=== PATIENT | male | born 1955 | race Caucasian/White ===

== ENCOUNTER 2020-12-23 12:23 | Observation (INO) ==
[2020-12-23] MEDS ORDERED: ASPIRIN CHEW 324 MG PO STA (12:52)
[2020-12-23] MEDS ORDERED: SODIUM CHLORIDE 0.9% 500 ML IV ONE (12:52)
--- NOTE | 2020-12-23 13:00 | Emergency Department Note ---
Impression & Plan Bradycardia, Near syncope, Abnormal ECG ED Provider Note NAME: YUNI SANTOS AGE: 65 SEX: M ARRIVES VIA: Walk-In INFORMANT: Patient, ED PROVIDER(S): Dimitry Zhang MD CHIEF COMPLAINT: Dizziness, abnormal EKG, referred. PLAN: Disposition: Admit. MEDICAL DECISION MAKING: The patient is a pleasant 65-year-old gentleman who presents to the emergency department, accompanied by his referred from his PCPs office for bradycardia and EKG concerning for ischemia in the setting of having appointment today to evaluate intermittent dizziness over the past 4 days or so. Despite his dizziness during this time he reports he has been exercising as usual and swim laps in the pool yesterday without difficulty. He denies ever having any chest pain or shortness of breath. When he feels dizzy he may feel some nausea but denies vomiting. He reports he is on Flomax for his prostate but denies any other medications. On arrival the patient is fatigued appearing in no distress, afebrile with heart rate bradycardic ranging from upper 30s to low 40s. His blood pressure is 160/80. He does not feel dizzy at this moment. Initial EKG on arrival shows bradycardia 39 bpm without any overt evidence of high-grade block. There is ST segment abnormalities in the precordial leads that is suspicious for possible Wellens syndrome. However, the patient has no chest pain and there is no overt concave down ST elevation. Of note, review of the patient's EKG from December 17, 2008 shows overall similar morphology however the biphasic nature of V1 does appear new. He did have sinus bradycardia at that time to 51bpm. Chest x-ray without acute cardiopulmonary process. WBC and platelets within normal limits. H/H 13.8/41.3 without recent values for comparison. Chemistry without metabolic acidosis. Electrolytes and LFTs unremarkable. Troponin negative/undetectable. TSH within normal limits. COVID-19 PCR was negative. I did review the case with interventional cardiology on-call, Dr. Leslie, who was able to review the patient's EKGs and agrees in concern for abnormal EKG though given similar morphology in the past and no chest pain no indication for emergent catheterization at this time. Agrees with plan for admission for further rule out including echo. Agrees with aspirin and deferring heparin at this time. Patient and at bedside agree with admission plan. Case was discussed with Savanna Marcos PAC, with Dr. Nile Corrales hospitalist who will evaluate the patient for admission. Triage Nursing notes reviewed and agree them. Prior medical records reviewed. Vital Signs: reviewed and remarkable for bradycardia. Differential diagnosis: Infection, dehydration, metabolic abnormality, hypo/hyperglycemia, electrolyte disturbance, anemia, hypoxia, cardiac sources, intracerebral event, toxicologic, neurologic, as well as other pathologies. ER treatment provided: See below. Diagnostics interpreted by me: ECG: Sinus bradycardia, 39 bpm, no ectopy, no overt high-grade block. ST abnormalities anteriorly. Cardiac Monitoring: An order for continuous cardiac monitoring was placed and demonstrated sinus bradycardia, 39 bpm, no ectopy. Laboratory studies: See below Imaging studies: See below Consultation(s): Case was discussed with Savanna Marcos, with Dr. Nile Corrales hospitalist who will evaluate the patient for admission. HPI: The patient is a pleasant 65-year-old gentleman who presents to the emergency department, accompanied by his referred from his PCPs office for bradycardia and EKG concerning for ischemia in the setting of having appointment today to evaluate intermittent dizziness over the past 4 days or so. Despite his dizziness during this time he reports he has been exercising as usual and swim laps in the pool yesterday without difficulty. He denies ever having any chest pain or shortness of breath. When he feels dizzy he may feel some nausea but denies vomiting. He reports he is on Flomax for his prostate but denies any other medications. ROS: See above HPI for pertinent positives & negatives. A total of 10 systems reviewed and were otherwise negative. PAST MEDICAL HISTORY:See Below PAST SURGICAL HISTORY:See Below FAMILY HISTORY:See Below SOCIAL HISTORY:See Below HOME MEDICATIONS:See Below ALLERGIES:See Below VITALS:See Below PHYSICAL EXAMINATION: GENERAL: Awake, alert, fatigued-appearing, in no distress HENT: Normocephalic, atraumatic. Oropharynx with dry mucous membranes and otherwise unremarkable. EYES: Normal conjunctiva. Sclera non-icteric. NECK: Supple. No nuchal rigidity. FROM. No JVD. RESPIRATORY: Clear to auscultation. CARDIAC: Bradycardic rate, normal rhythm. Extremities warm and well perfused. Pulses equal. ABDOMEN: Soft, non-distended. No tenderness to palpation. No rebound or guarding. No masses. RECTAL: Deferred. MUSCULOSKELETAL: Chest examination reveals no tenderness. The back is symmetrical on inspection without obvious abnormality. There is no CVA tenderness to palpation. No joint edema. LOWER EXTREMITIES: Calves are equal size bilaterally and non-tender. No edema. No discoloration. NEURO: Normal sensorium. No sensory or motor deficits noted. SKIN: No rash or jaundice noted. Dimitry Zhang MD Past Med/Surg History Medical History Acquired left foot drop BPH (benign prostatic hyperplasia) Dyslipidemia Surgical History H/O Spinal surgery Family History Other Heart disease Stroke Social History Smoking Status: Never smoker Second Hand Exposure: No; Do You Dip or Chew Tobacco: No; Tobacco Cessation Education Requested by Patient: No Hx Alcohol Use: Yes Alcohol type: wine Alcohol Intake Frequency: 2-4 x/Month Hx Substance Use: No Preferred Language: Cambodian Communication Ability: Effective Health Educator Required: No Beliefs That Will Affect Care: None Current Living Situation: Spouse Other Information That Helps Us Care for You: No Feels Safe at Home: Yes Safety Concerns: Feels Safe At This Time Assistive Devices: Glasses Allergies Allergies Allergy/AdvReac Type Severity Reaction Status Date / Time Sulfa (Sulfonamide Allergy Unknown Verified 12/23/20 14:09 Antibiotics) Home Meds Home Medications Medication Instructions Recorded Confirmed [id number] 1 cap PO QAM 12/23/20 12/23/20 [Krill Oil ([place] 3 and 6)] tamsulosin [Flomax] 0.4 mg PO QAM 12/23/20 12/23/20 [id number] 1 cap PO QAM 12/23/20 12/23/20 [Candicidal] Results & Data (ED) Vital Signs Vital Signs - 24 hr 12/23/20 12:27 12/23/20 12:42 12/23/20 12:45 Temperature 35.9 C L Temperature Source Temporal Artery Scan Pulse Rate 42 L 40 L Pulse Rate from SpO2 Sensor 41 L Respiratory Rate 20 13 Respiratory Effort / Characteristics Non-Labored Spontaneous Respiratory Depth Normal Respiratory Pattern Regular Blood Pressure 162/87 H 182/87 H Blood Pressure Mean 112 118 Pulse Oximetry 99 100 100 Oxygen Delivery Method Room Air Room Air Room Air Sepsis Recent Fever Within 48 Hours No Sepsis New/Unexplained Change in Mental Status No Sepsis Action Taken by Nursing No Action Required 12/23/20 12:50 12/23/20 13:00 12/23/20 13:01 Temperature Temperature Source Pulse Rate 37 L 36 L 37 L Pulse Rate from SpO2 Sensor 37 L 36 L 37 L Respiratory Rate 16 13 17 Respiratory Effort / Characteristics Respiratory Depth Respiratory Pattern Blood Pressure 148/82 H Blood Pressure Mean 104 Pulse Oximetry 100 100 99 Oxygen Delivery Method Room Air Room Air Room Air Sepsis Recent Fever Within 48 Hours Sepsis New/Unexplained Change in Mental Status Sepsis Action Taken by Nursing 12/23/20 13:15 12/23/20 13:30 12/23/20 13:32 Temperature Temperature Source Pulse Rate 39 L 40 L 37 L Pulse Rate from SpO2 Sensor 41 L 39 L 37 L Respiratory Rate 15 13 16 Respiratory Effort / Characteristics Respiratory Depth Respiratory Pattern Blood Pressure 150/80 H 164/84 H Blood Pressure Mean 103 110 Pulse Oximetry 100 99 99 Oxygen Delivery Method Room Air Room Air Room Air Sepsis Recent Fever Within 48 Hours Sepsis New/Unexplained Change in Mental Status Sepsis Action Taken by Nursing 12/23/20 13:33 12/23/20 13:45 12/23/20 14:00 Temperature Temperature Source Pulse Rate 38 L 38 L 38 L Pulse Rate from SpO2 Sensor 38 L 38 L 37 L Respiratory Rate 13 16 15 Respiratory Effort / Characteristics Respiratory Depth Respiratory Pattern Blood Pressure 145/82 H Blood Pressure Mean 103 Pulse Oximetry 99 100 100 Oxygen Delivery Method Room Air Room Air Room Air Sepsis Recent Fever Within 48 Hours Sepsis New/Unexplained Change in Mental Status Sepsis Action Taken by Nursing 12/23/20 14:01 12/23/20 14:02 12/23/20 14:15 Temperature Temperature Source Pulse Rate 40 L 37 L 39 L Pulse Rate from SpO2 Sensor 40 L 38 L 39 L Respiratory Rate 13 14 13 Respiratory Effort / Characteristics Respiratory Depth Respiratory Pattern Blood Pressure 155/93 H 156/83 H Blood Pressure Mean 113 107 Pulse Oximetry 100 100 98 Oxygen Delivery Method Room Air Room Air Room Air Sepsis Recent Fever Within 48 Hours Sepsis New/Unexplained Change in Mental Status Sepsis Action Taken by Nursing 12/23/20 14:30 Temperature Temperature Source Pulse Rate 38 L Pulse Rate from SpO2 Sensor 38 L Respiratory Rate 14 Respiratory Effort / Characteristics Respiratory Depth Respiratory Pattern Blood Pressure 174/85 H Blood Pressure Mean 114 Pulse Oximetry 99 Oxygen Delivery Method Room Air Sepsis Recent Fever Within 48 Hours Sepsis New/Unexplained Change in Mental Status Sepsis Action Taken by Nursing Laboratory Data Attestation: I reviewed the patient's lab results. Result diagrams: 12/23/20 12:47 12/23/20 12:47 Lab Results 12/23/20 12/23/20 12/23/20 Range/Units 12:47 12:47 12:47 WBC 5.12 (4.8-10.8) K/uL RBC 4.32 L (4.7-6.1) M/uL Hgb 13.8 L (14.0-18.0) g/dL POC Hgb (14.0-18.0) g/dl Hct 41.3 L (42-52) % POC Hct (42-52) % MCV 95.6 (80-100) fL MCH 31.9 (25-34) pg MCHC 33.4 (32-36) g/dL RDW Std Deviation 47.6 H (36.4-46.3) fL RDW Coeff of Kaylee 13.6 (11.5-14.5) % Plt Count 320 (130-400) K/uL MPV 9.4 (7.4-10.4) fL Immature Gran % (Auto) 0.0 % Neut % (Auto) 55.1 % Lymph % (Auto) 37.1 % Emmons % (Auto) 6.6 % Eos % (Auto) 0.8 % Baso % (Auto) 0.4 % Neut # (Auto) 2.82 (1.4-6.5) K/uL Lymph # (Auto) 1.90 (1.2-3.4) K/uL Emmons # (Auto) 0.34 (0.11-0.59) K/uL Eos # (Auto) 0.04 (0-0.5) K/uL Baso # (Auto) 0.02 (0-0.2) K/uL Immature Gran # (Auto) 0.00 (0.00-0.02) K/uL PT 10.3 (9.0-12.0) Seconds INR 1.0 (0.9-1.1) APTT 25.1 (21.0-31.0) Seconds PTT Ratio 1.0 POC Sodium (135-144) mmol/L Sodium 134 L (136-145) mmol/L POC Potassium (3.3-5.0) mmol/L Potassium 4.3 (3.5-5.1) mmol/L POC Chloride (101-112) mmol/L Chloride 102 (98-107) mmol/L Carbon Dioxide 29 (21-32) mmol/L POC Total CO2 (24-31) mmol/L Anion Gap 3.0 (3-11) POC Anion Gap (16-25) mmol/L POC BUN (7-18) mg/dl BUN 15 (7-18) mg/dl Creatinine 0.86 (0.6-1.4) mg/dl POC Creatinine (0.6-1.3) mg/dl Est Cr Clr Drug Dosing Not Reportable Est GFR ( Amer) 104.0 ml/min Est GFR (Non-Af Amer) 89.7 ml/min BUN/Creatinine Ratio 17.9 (10-20) Glucose 90 (70-99) mg/dl POC Glucose (other) (70-99) mg/dl Calcium 8.5 (8.5-10.1) mg/dl POC Ioniz Calcium Carla (1.12-1.32) mmol/l Phosphorus 3.7 (2.5-4.9) mg/dl Magnesium 2.3 (1.8-2.4) mg/dl Total Bilirubin 0.5 (0.2-1) mg/dl Direct Bilirubin 0.1 (0-0.2) mg/dl AST 30 (15-37) U/L ALT 27 (12-78) U/L Alkaline Phosphatase 83 (45-117) U/L Total Creatine Kinase 167 (39-308) U/L Troponin I < 0.015 (0-0.045) ng/ml Total Protein 7.2 (6.4-8.2) gm/dl Albumin 3.9 (3.4-5.0) gm/dl Globulin 3.3 (2.5-4.0) gm/dl Albumin/Globulin Ratio 1.2 (0.9-2) Lipase 227 (73-393) U/L TSH 3.140 (0.300-4.500) uIu/ml Lyme Disease IgG Ab (Negative) Lyme Disease IgM Ab (Negative) COVID-19 Eval Order SARS-CoV-2 (PCR) (Negative) 12/23/20 12/23/20 12/23/20 Range/Units 12:47 12:54 13:15 WBC (4.8-10.8) K/uL RBC (4.7-6.1) M/uL Hgb (14.0-18.0) g/dL POC Hgb 13.6 L (14.0-18.0) g/dl Hct (42-52) % POC Hct 40 L (42-52) % MCV (80-100) fL MCH (25-34) pg MCHC (32-36) g/dL RDW Std Deviation (36.4-46.3) fL RDW Coeff of Kaylee (11.5-14.5) % Plt Count (130-400) K/uL MPV (7.4-10.4) fL Immature Gran % (Auto) % Neut % (Auto) % Lymph % (Auto) % Emmons % (Auto) % Eos % (Auto) % Baso % (Auto) % Neut # (Auto) (1.4-6.5) K/uL Lymph # (Auto) (1.2-3.4) K/uL Emmons # (Auto) (0.11-0.59) K/uL Eos # (Auto) (0-0.5) K/uL Baso # (Auto) (0-0.2) K/uL Immature Gran # (Auto) (0.00-0.02) K/uL PT (9.0-12.0) Seconds INR (0.9-1.1) APTT (21.0-31.0) Seconds PTT Ratio POC Sodium 136 (135-144) mmol/L Sodium (136-145) mmol/L POC Potassium 4.4 (3.3-5.0) mmol/L Potassium (3.5-5.1) mmol/L POC Chloride 98 L (101-112) mmol/L Chloride (98-107) mmol/L Carbon Dioxide (21-32) mmol/L POC Total CO2 27 (24-31) mmol/L Anion Gap (3-11) POC Anion Gap 17.0 (16-25) mmol/L POC BUN 17 (7-18) mg/dl BUN (7-18) mg/dl Creatinine (0.6-1.4) mg/dl POC Creatinine 1.0 (0.6-1.3) mg/dl Est Cr Clr Drug Dosing Est GFR ( Amer) ml/min Est GFR (Non-Af Amer) ml/min BUN/Creatinine Ratio (10-20) Glucose (70-99) mg/dl POC Glucose (other) 95 (70-99) mg/dl Calcium (8.5-10.1) mg/dl POC Ioniz Calcium Carla 1.20 (1.12-1.32) mmol/l Phosphorus (2.5-4.9) mg/dl Magnesium (1.8-2.4) mg/dl Total Bilirubin (0.2-1) mg/dl Direct Bilirubin (0-0.2) mg/dl AST (15-37) U/L ALT (12-78) U/L Alkaline Phosphatase (45-117) U/L Total Creatine Kinase (39-308) U/L Troponin I (0-0.045) ng/ml Total Protein (6.4-8.2) gm/dl Albumin (3.4-5.0) gm/dl Globulin (2.5-4.0) gm/dl Albumin/Globulin Ratio (0.9-2) Lipase (73-393) U/L TSH (0.300-4.500) uIu/ml Lyme Disease IgG Ab Negative (Negative) Lyme Disease IgM Ab Negative (Negative) COVID-19 Eval Order Covid19 at [facility] SARS-CoV-2 (PCR) (Negative) 12/23/20 Range/Units 13:15 WBC (4.8-10.8) K/uL RBC (4.7-6.1) M/uL Hgb (14.0-18.0) g/dL POC Hgb (14.0-18.0) g/dl Hct (42-52) % POC Hct (42-52) % MCV (80-100) fL MCH (25-34) pg MCHC (32-36) g/dL RDW Std Deviation (36.4-46.3) fL RDW Coeff of Kaylee (11.5-14.5) % Plt Count (130-400) K/uL MPV (7.4-10.4) fL Immature Gran % (Auto) % Neut % (Auto) % Lymph % (Auto) % Emmons % (Auto) % Eos % (Auto) % Baso % (Auto) % Neut # (Auto) (1.4-6.5) K/uL Lymph # (Auto) (1.2-3.4) K/uL Emmons # (Auto) (0.11-0.59) K/uL Eos # (Auto) (0-0.5) K/uL Baso # (Auto) (0-0.2) K/uL Immature Gran # (Auto) (0.00-0.02) K/uL PT (9.0-12.0) Seconds INR (0.9-1.1) APTT (21.0-31.0) Seconds PTT Ratio POC Sodium (135-144) mmol/L Sodium (136-145) mmol/L POC Potassium (3.3-5.0) mmol/L Potassium (3.5-5.1) mmol/L POC Chloride (101-112) mmol/L Chloride (98-107) mmol/L Carbon Dioxide (21-32) mmol/L POC Total CO2 (24-31) mmol/L Anion Gap (3-11) POC Anion Gap (16-25) mmol/L POC BUN (7-18) mg/dl BUN (7-18) mg/dl Creatinine (0.6-1.4) mg/dl POC Creatinine (0.6-1.3) mg/dl Est Cr Clr Drug Dosing Est GFR ( Amer) ml/min Est GFR (Non-Af Amer) ml/min BUN/Creatinine Ratio (10-20) Glucose (70-99) mg/dl POC Glucose (other) (70-99) mg/dl Calcium (8.5-10.1) mg/dl POC Ioniz Calcium Carla (1.12-1.32) mmol/l Phosphorus (2.5-4.9) mg/dl Magnesium (1.8-2.4) mg/dl Total Bilirubin (0.2-1) mg/dl Direct Bilirubin (0-0.2) mg/dl AST (15-37) U/L ALT (12-78) U/L Alkaline Phosphatase (45-117) U/L Total Creatine Kinase (39-308) U/L Troponin I (0-0.045) ng/ml Total Protein (6.4-8.2) gm/dl Albumin (3.4-5.0) gm/dl Globulin (2.5-4.0) gm/dl Albumin/Globulin Ratio (0.9-2) Lipase (73-393) U/L TSH (0.300-4.500) uIu/ml Lyme Disease IgG Ab (Negative) Lyme Disease IgM Ab (Negative) COVID-19 Eval Order SARS-CoV-2 (PCR) NEGATIVE (Negative) Administered Medications Heparin Sodium (Porcine) (Heparin Sod 5,000 Unit/0.5 Ml Vial) 5,000 units SQ Q8 WAQAR Stop: 01/22/21 21:59 Last Admin: 12/23/20 21:57 Dose: 5,000 units Documented by: [id number] Discontinued Medications Aspirin (Aspirin Chew 324 Mg) 324 mg PO NOW STA Stop: 12/23/20 12:53 Last Admin: 12/23/20 13:12 Dose: Not Given Documented by: [id number] Sodium Chloride (Nss) 500 mls @ 999 mls/hr IV .Q31M ONE Stop: 12/23/20 13:22 Last Infusion: 12/23/20 13:45 Dose: 0 mls/hr Documented by: [id number] Admin: 12/23/20 13:14 Dose: 999 mls/hr Documented by: [id number] Imaging Data Radiologist's Impression: Chest X-Ray 12/23/20 12:51 XR chest 1V portable CLINICAL HISTORY: Atypical chest pain COMPARISON STUDY: December 2008 FINDINGS: The heart is the upper limits of normal in size. There is no overt failure. There is no focal pulmonary consolidation. There are no pleural effusions. There is gaseous prominence of the visualized portions of the bowel.[ IMPRESSION: No active disease in the chest. ACT 112: Negative or not required by law. Electronically signed by: Diego Ozuna M.D. 12/23/2020 1:10 PM Discharge Plan Visit Data Chief Complaint: Cardiac Assessment Stated Complaint: DIZZINESS/REFERRED BY ABNORMAL EKG ED Provider: Dimitry Zhang Discharge Problem: Bradycardia, Near syncope, Abnormal ECG Patient Disposition: Admitted As Inpatient Discharge Instructions Interventions: ED Discharge Assessment Last Done: 12/23/20 15:02
[2020-12-23 13:01] LABS: Basophils # (auto) 0.02 K/uL (0-0.2); Basophils % (auto) 0.4 %; Eosinophils # (auto) 0.04 K/uL (0-0.5); Eosinophils % (auto) 0.8 %; Hematocrit (blood only) 41.3 % (42-52); Hemoglobin 13.8 g/dL (14.0-18.0); Lymphocytes % (auto) 37.1 %; Mean Corpuscular Hemoglobin 31.9 pg (25-34); Mean Corpuscular Hgb Conc 33.4 g/dL (32-36); Mean Corpuscular Volume 95.6 fL (80-100); Mean Platelet Volume 9.4 fL (7.4-10.4); Monocytes # (auto) 0.34 K/uL (0.11-0.59); Monocytes % (auto) 6.6 %; Neutrophils # (auto) 2.82 K/uL (1.4-6.5); Neutrophils % (auto) 55.1 %; Platelet Count 320 K/uL (130-400); RDW Coefficient of Variation 13.6 % (11.5-14.5); RDW Standard Deviation 47.6 fL (36.4-46.3); Red Blood Count 4.32 M/uL (4.7-6.1); White Blood Count 5.12 K/uL (4.8-10.8)
[2020-12-23 13:07] LABS: iSTAT Hemoglobin 13.6 g/dl (14.0-18.0); iSTAT Ionized Calcium 1.2 mmol/l (1.12-1.32); iSTAT Potassium 4.4 mmol/L (3.3-5.0)
[2020-12-23 13:11] LABS: Partial Thromboplastin Time 25.1 Seconds (21.0-31.0); Prothrombin Time 10.3 Seconds (9.0-12.0)
--- NOTE | 2020-12-23 13:11 | XRay Report ---
XR chest 1V portable CLINICAL HISTORY: Atypical chest pain COMPARISON STUDY: December 2008 FINDINGS: The heart is the upper limits of normal in size. There is no overt failure. There is no foc al pulmonary consolidation. There are no pleural effusions. There is gaseous prominence of the visual ized portions of the bowel.[ IMPRESSION: No active disease in the chest. ACT 112: Negative or not required by law. Electronically signed by: Diego Ozuna M.D. 12/23/2020 1:10 PM
[2020-12-23 13:23] LABS: Alanine Aminotransferase 27 U/L (12-78); Albumin Level 3.9 gm/dl (3.4-5.0); Aspartate Aminotransferase 30 U/L (15-37); BUN Creatinine Ratio 17.9 (10-20); Blood Urea Nitrogen 15 mg/dl (7-18); Calcium 8.5 mg/dl (8.5-10.1); Carbon Dioxide 29 mmol/L (21-32); Chloride 102 mmol/L (98-107); Est GFR (Non-African American) 89.7 ml/min; Glucose 90 mg/dl (70-99); Lipase 227 U/L (73-393); Magnesium 2.3 mg/dl (1.8-2.4); Potassium 4.3 mmol/L (3.5-5.1); Sodium 134 mmol/L (136-145)
[2020-12-23 13:31] LABS: Albumin Globulin Ratio 1.2 (0.9-2); Alkaline Phosphatase 83 U/L (45-117); Bilirubin Direct 0.1 mg/dl (0-0.2); Bilirubin,Total 0.5 mg/dl (0.2-1); Creatine Kinase 167 U/L (39-308); Globulin 3.3 gm/dl (2.5-4.0); Phosphorus 3.7 mg/dl (2.5-4.9); Total Protein 7.2 gm/dl (6.4-8.2); Troponin I < 0.015 ng/ml (0-0.045)
--- NOTE | 2020-12-23 14:48 | History & Physical Report ---
Date of Service December 23, 2020 Assessment & Plan (1) Near syncope: (2) Bradycardia: This is a 65yo M with a PMH of dyslipidemia, BPH, history of left foot drop and other medical problems listed below who presents with persistent lightheadedness over the past few days and was found to have abnormal EKG and worsening bradycardia. Lightheadedness in setting of bradycardia, abnormal EKG HR in high 30s-40s today History of bradycardia in setting of routine cardiovascular exercise- average daily resting HR of 48 bpm per Fitbit reading Lyme serology pending, TSH wnl. Potassium and calcium wnl Discussed with cardiology - concerned regarding underlying sinus node dysfunction No need for temporary pacer at this time Monitor on telemetry, 2D echo pending, NPO after MN in case of stress testing tomorrow (3) Abnormal ECG: EKG with ST changes in anterolateral leads that look similar to EKGs dating back to 2005 - no acute changes No chest pain or SOB Trend troponin (4) Elevated systolic blood pressure reading without diagnosis of hypertension: Downtrending since PCU - continue to monitor Plan to allow for some physiological compensation given marked bradycardia (5) Dyslipidemia: History of diet controlled dyslipidemia. Fasting lipid panel ordered for AM (6) BPH (benign prostatic hyperplasia): Continue Flomax DVT Ppx: SQ heparin Code status: FULL PCP: Jey Dispo: Observation PCU Patient seen in collaboration with Dr. Dowd. Please see addendum. History of Present Illness Chief Complaint: Lightheadedness, near syncope Primary Care Provider: Eddie Khanna, This is a 65yo M with a PMH of dyslipidemia, BPH, history of left foot drop and other medical problems listed below who presents with persistent lightheadedness over the past few days. Was seen by PCP earlier today after having the lightheadedness every morning for the past 3 days that would resolve later on during the day. However, this morning, lightheadedness persisted and was accompanied with some generalized weakness and near syncope. EKG was performed in the office with concern for ST changes in anterolateral leads and patient was directed to ER for further evaluation. Patient denies any chest pain or palpitations. Has not experienced any lightheadedness since arrival. Denies any history of known heart disease or evaluation by cardiology. Does remember being told he had an abnormal EKG prior to back surgery years ago but did not undergo any further evaluation. Is an avid walker and swimmer with HR in 40s at rest and 50s-low 60s during the day, per Fitbit reads. Does have family history of heart disease. Denies any fever, chills, headache, dizziness, chest pain, palpitations, shortness of breath, nausea, vomiting, abdominal pain, dysuria, diarrhea or constipation. Allergies Allergy/AdvReac Type Severity Reaction Status Date / Time Sulfa (Sulfonamide Allergy Unknown Verified 12/23/20 14:09 Antibiotics) Home Medications Medication Instructions Recorded Confirmed Type [id number]-[id number]-caq-astx 1 cap PO QAM 12/23/20 12/23/20 History [Krill Oil ([place] 3 and 6)] tamsulosin [Flomax] 0.4 mg PO QAM 12/23/20 12/23/20 History [id number]-[id number]-ezdby-oreg-capryl 1 cap PO QAM 12/23/20 12/23/20 History [Candicidal] Past Med/Surg History Medical History Acquired left foot drop BPH (benign prostatic hyperplasia) Dyslipidemia Surgical History H/O Spinal surgery Family History Other Heart disease Stroke Social History Smoking Status: Never smoker Hx Alcohol Use: Yes Alcohol Intake Frequency: 2-4 x/Month Hx Substance Use: No Preferred Language: Sudanese Feels Safe at Home: Yes Review of Systems Review of Systems: At least ten systems reviewed and negative except as noted in the HPI. Physical Exam Physical Exam: General Appearance: WD/WN, vitals as above, NAD, sitting up in bed, pleasant, conversing easily Head: normocephalic, atraumatic Eyes: normal inspection, PERRL, conjunctivae normal, anicteric sclerae ENT: external ear and nose normal, oropharynx normal Neck: normal visual inspection, trachea midline, no thyromegaly Respiratory: normal respiratory effort, lungs clear to auscultation, no wheeze, rales, rhonchi. No accessory muscle use Cardiovascular: bradycardic rate, regular rhythm, no murmur, normal peripheral pulses, no BLE edema. Vessels: no JVD Chest: normal inspection of chest Abdomen/GI: normal bowel sounds, soft, nontender, no hepatosplenomegaly Extremities/Musculoskeletal: no cyanosis or clubbing, extremities motor strength 5/5 Neurologic: PERRL, EOMI, accommodation nl, no face palsy, no dysarthria, CN's II-XI intact bilaterally and moves all extremities Psychiatric: A+Ox3, euthymic affect Skin: no rashes, normal color, warm/dry Results & Data Results & Data ([facility]) Vital Signs (Past 12 Hours) Vital Signs Temp Pulse Resp BP Pulse Ox 12/23/20 14:30 38 L 14 174/85 H 99 12/23/20 14:15 39 L 13 156/83 H 98 12/23/20 14:02 37 L 14 100 12/23/20 14:01 40 L 13 155/93 H 100 12/23/20 14:00 38 L 15 100 12/23/20 13:45 38 L 16 145/82 H 100 12/23/20 13:33 38 L 13 99 12/23/20 13:32 37 L 16 164/84 H 99 12/23/20 13:30 40 L 13 99 12/23/20 13:15 39 L 15 150/80 H 100 12/23/20 13:01 37 L 17 148/82 H 99 12/23/20 13:00 36 L 13 100 12/23/20 12:50 37 L 16 100 12/23/20 12:45 40 L 13 182/87 H 100 12/23/20 12:42 100 12/23/20 12:27 35.9 C L 42 L 20 162/87 H 99 Laboratory Results Short CBC 12/23/20 Range/Units 12:47 WBC 5.12 (4.8-10.8) K/uL Hgb 13.8 L (14.0-18.0) g/dL Hct 41.3 L (42-52) % Plt Count 320 (130-400) K/uL BMP 12/23/20 12:47 Sodium 134 L Potassium 4.3 Chloride 102 Carbon Dioxide 29 BUN 15 Creatinine 0.86 Glucose 90 Calcium 8.5 Cardiac Enzymes 12/23/20 Range/Units 12:47 Total Creatine Kinase 167 (39-308) U/L Troponin I < 0.015 (0-0.045) ng/ml Liver Function 12/23/20 Range/Units 12:47 Total Bilirubin 0.5 (0.2-1) mg/dl Direct Bilirubin 0.1 (0-0.2) mg/dl AST 30 (15-37) U/L ALT 27 (12-78) U/L Alkaline Phosphatase 83 (45-117) U/L Albumin 3.9 (3.4-5.0) gm/dl Diagnostic Findings Chest X-Ray 12/23/20 12:51 XR chest 1V portable CLINICAL HISTORY: Atypical chest pain COMPARISON STUDY: December 2008 FINDINGS: The heart is the upper limits of normal in size. There is no overt failure. There is no focal pulmonary consolidation. There are no pleural effusions. There is gaseous prominence of the visualized portions of the bowel.[ IMPRESSION: No active disease in the chest. ACT 112: Negative or not required by law. Electronically signed by: Diego Ozuna M.D. 12/23/2020 1:10 PM Code Status & VTE Plan VTE Prophylaxis Plan VTE Prophylaxis will be ordered: Yes Supervising Physician Co-Signing Physician Notes Attending addendum: The patient was seen and examined in telemetry unit in presence of the He has been complaining of dizziness that has been worse this morning than before Denies any chest pain and/or palpitation or any shortness of breath Noted to have significant bradycardia on admission Denies any symptoms during my examination On examination No apparent distress at rest Hemodynamically stable with systolic blood pressure of 189/83 Chest-clear to auscultate bilaterally Heart-S1-S2, regular Abdomen-benign Extremities no edema CNSalert, awake and oriented x3 His admission labs, imaging studies and EKG reviewed Has significant EKG changes which is similar to that of prior EKG Likely has sinus node dysfunction No evidence of ACS. Will get serial troponins and EKG and cardiac consult Agree with assessment and plan as outlined above by ALEXIA Marcos Dr
--- NOTE | 2020-12-23 15:30 | Electrocardiogram Report ---
Test Reason : Blood Pressure : / mmHG Vent. Rate : 039 BPM Atrial Rate : 039 BPM P-R Int : 188 ms QRS Dur : 116 ms QT Int : 500 ms P-R-T Axes : 038 044 046 degrees QTc Int : 402 ms Marked sinus bradycardia Left ventricular hypertrophy with QRS widening with repolarization abnormality Cannot rule out Septal infarct (cited on or before 23-DEC-2020) Abnormal ECG When compared with ECG of 17-DEC-2008 09:26, No significant change was found Confirmed by Humble Tang ([id number]) on 12/23/2020 3:30:02 PM Referred By: Eddie Khanna Confirmed By:Humble Tang
--- NOTE | 2020-12-23 16:08 | Cardiology Consultation ---
Date of Consultation December 23, 2020 Assessment & Plan (1) Sinus node dysfunction: 65-year-old patient with marked sinus bradycardia and near syncope. Bradycardic resting heart rate noted on ECGs dating back to 2005, however, current resting heart rate currently in the upper 30s/low 40s with an average daily resting heart rate of 48 bpm. Cardiac conditioning surely contributing to patient's low heart rate, however, with a heart rate below 40 bpm I am concerned regarding underlying sinus node dysfunction. He is at risk for Lyme's exposure. A Lyme titer has been ordered. TSH within normal limits. Resting 2D transthoracic echocardiogram pending at this time. Pending review of 2D transthoracic echocardiogram will consider proceeding with exercise stress testing tomorrow to assess chronotropic competence. (2) Near syncope: Symptomatic bradycardia and suspected. We will continue to monitor telemetry overnight. No indication for temporary pacemaker at this time. (3) Elevated systolic blood pressure reading without diagnosis of hypertension: Situational component with borderline hypotension noted during office visit earlier today. His blood pressure is trending downward since his transfer from the ER to the progressive care unit. Continue to monitor at this time. (4) Abnormal ECG: ECG with anterior ST elevations which are similar to prior ECGs dating back to 2005. Initial troponin undetectable. Will trend x3 sets. Resting 2D transthoracic echocardiogram. History of Present Illness Reason for Consultation: Bradycardia, abnormal ECG Requesting Physician: Dr. Dowd Attending Physician: Henry Dowd MD History of Present Illness 65-year-old patient presented to his family physician's office this morning with complaints of dizziness. Reports episodes of lightheadedness and dizziness primarily in the a.m. dating back to last . He also reports episodes of lightheadedness with near syncope when awakening to use the bathroom in the middle of the night. Denies overt syncope. Exercises regularly. Walking 4 miles daily and typically swimming 1 mile per day. Denies any exertional chest discomfort or unusual shortness of breath. Functional capacity is stable. No orthopnea, PND, lower extremity edema, or claudication. Denies palpitations, focal weakness, slurred speech, facial asymmetry, or paresthesias. ECG performed in office demonstrates marked sinus bradycardia with a heart rate of 39 bpm and anterior lateral ST elevation. When compared to ECGs dating back to 2059 current tracing appears similar however the T wave is biphasic in V1. Patient currently resting comfortably. Denies any symptoms at rest. Telemetry reveals sinus bradycardia. He is wearing a fit bit. Average resting heart rate over the past 3 months is 48 bpm. Notes heart rates as high as 120 bpm during exercise. Allergies Allergy/AdvReac Type Severity Reaction Status Date / Time Sulfa (Sulfonamide Allergy Unknown Verified 12/23/20 14:09 Antibiotics) Home Medications Medication Instructions Recorded Confirmed Type [id number]-cig-exf-[id number]-jse-astx 1 cap PO QAM 12/23/20 12/23/20 History [Krill Oil ([place] 3 and 6)] tamsulosin [Flomax] 0.4 mg PO QAM 12/23/20 12/23/20 History cpwfqlx-wbri-rgnmz-oreg-capryl 1 cap PO QAM 12/23/20 12/23/20 History [Candicidal] Patient History Medical History Acquired left foot drop BPH (benign prostatic hyperplasia) Dyslipidemia Surgical History H/O Spinal surgery Family History Other Heart disease Stroke Social History Smoking Status: Never smoker Second Hand Exposure: No; Do You Dip or Chew Tobacco: No; Tobacco Cessation Education Requested by Patient: No Hx Alcohol Use: Yes Alcohol type: wine Alcohol Intake Frequency: 2-4 x/Month Hx Substance Use: No Preferred Language: Kazakh Communication Ability: Effective 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 Beliefs That Will Affect Care: None Current Living Situation: Spouse Other Information That Helps Us Care for You: No Feels Safe at Home: Yes Safety Concerns: Feels Safe At This Time Assistive Devices: None Review of Systems Review of Systems: All systems reviewed & are unremarkable except as noted in Subjective Physical Exam Constitutional: well developed and well nourished; no acute distress Respiratory: normal respiratory effort; no respiratory distress, no labored breathing and no retractions Cardiovascular: Rate/Rhythm: regular rate and regular rhythm Heart Sounds: normal S1 and normal S2; no gallop, no murmur and no cardiac rub Vessels: no JVD and no carotid bruit Extremities: no edema Gastrointestinal (Abdomen): Inspection/Auscultation: abdomen normal to inspection and normal bowel sounds; abdomen not distended Percussion/Palpation: abdomen soft; abdomen nontender, no guarding and abdomen not rigid Neurologic: CN's II-XI intact bilaterally and moves all extremities; no focal motor deficits Motor/Sensory: no tremor Psychiatric: A+Ox3, euthymic affect Results & Data ([facility]) Vital Signs (Past 12 Hours) Vital Signs Temp Pulse Pulse Resp BP BP Pulse Ox 12/23/20 16:02 36.5 C 42 L 20 189/83 H 99 12/23/20 14:30 38 L 14 174/85 H 99 12/23/20 14:15 39 L 13 156/83 H 98 12/23/20 14:02 37 L 14 100 12/23/20 14:01 40 L 13 155/93 H 100 12/23/20 14:00 38 L 15 100 12/23/20 13:45 38 L 16 145/82 H 100 12/23/20 13:33 38 L 13 99 12/23/20 13:32 37 L 16 164/84 H 99 12/23/20 13:30 40 L 13 99 12/23/20 13:15 39 L 15 150/80 H 100 12/23/20 13:01 37 L 17 148/82 H 99 12/23/20 13:00 36 L 13 100 12/23/20 12:50 37 L 16 100 12/23/20 12:45 40 L 13 182/87 H 100 12/23/20 12:42 100 12/23/20 12:27 35.9 C L 42 L 20 162/87 H 99
[2020-12-23] MEDS ORDERED: ACETAMINOPHEN 325 MG TAB PO PRN (16:43)
[2020-12-23] MEDS ORDERED: ONDANSETRON INJ 2 MG/ML 2 ML VIAL IV PRN (16:43)
[2020-12-23] MEDS ORDERED: NITROGLYCERIN SL 0.4 MG/TAB TAB SL PRN (16:43)
[2020-12-23] MEDS ORDERED: POLYETHYLENE (MIRALAX) 17 GM PACK PO PRN (16:43)
[2020-12-23 17:51] LABS: Lyme Ab IgG w/WB Rflx Negative (Negative); Lyme Ab IgM w/WB Rflx Negative (Negative)
[2020-12-23] MEDS: HEPARIN SOD 5,000 UNIT/0.5 ML VIAL SQ SCH (21:57)
[2020-12-24] MEDS: HEPARIN SOD 5,000 UNIT/0.5 ML VIAL SQ SCH ×3 (06:36→21:20)
[2020-12-24 07:00] LABS: Hematocrit (blood only) 40.2 % (42-52); Hemoglobin 13.5 g/dL (14.0-18.0); Mean Corpuscular Hemoglobin 32.1 pg (25-34); Mean Corpuscular Hgb Conc 33.6 g/dL (32-36); Mean Corpuscular Volume 95.5 fL (80-100); Mean Platelet Volume 9.5 fL (7.4-10.4); Platelet Count 326 K/uL (130-400); RDW Coefficient of Variation 13.7 % (11.5-14.5); RDW Standard Deviation 47.8 fL (36.4-46.3); Red Blood Count 4.21 M/uL (4.7-6.1); White Blood Count 7.97 K/uL (4.8-10.8)
[2020-12-24 07:32] LABS: Calcium 8.7 mg/dl (8.5-10.1); Creatinine Clr Calc Pharmacy 77.9 ml/min; Est GFR (African American) 95.6 ml/min; Est GFR (Non-African American) 82.5 ml/min; Potassium 4.3 mmol/L (3.5-5.1)
[2020-12-24] MEDS: TAMSULOSIN HCL 0.4 MG CAP PO SCH (08:25)
[2020-12-24 08:56] LABS: Estimated Average Glucose 114 mg/dl; Hemoglobin A1C 5.6 % (4.5-5.6)
--- NOTE | 2020-12-24 09:31 | Cardiology Consultation ---
Date of Consultation December 24, 2020 Assessment & Plan (1) Bradycardia: He presented with what is fairly clearly symptomatic bradycardia, he is on no medications to cause it, it is transient and appears to be resolving now which is consistent with his recent symptoms. Although he is still undergoing evaluation this seems most consistent with sinus node dysfunction. (2) Sinus node dysfunction: He appears to have sinus node dysfunction. He does have a history of bradycardia which based on his history and his Fitbit trend would be consistent with good physical conditioning until recently, however the recent drop (over the last 10 days or so) does not seem to be consistent with that. I suspect he has developed sinus node dysfunction, he may have had transient bradycardia before which he did not have symptoms with but now seems to. I did discuss pacemaker briefly with him, I told him that we had not made that decision as yet and he is little bit hesitant but may well consider it once we have made our decision. I do not think it would be urgent to put it in now, I do not think he has a dangerous arrhythmia but I suspect his symptoms will progress over time. (3) Abnormal ECG: His electrocardiogram is most consistent with early repolarization but it is somewhat abnormal. (4) Elevated systolic blood pressure reading without diagnosis of hypertension: I suspect he does have hypertension, he does have mild left ventricular hypertrophy and he has systolic hypertension. In part this may be related to his bradycardia which increases the pulse pressure. Sometimes this corrects with pacemaker implantation. History of Present Illness Reason for Consultation: Symptomatic bradycardia Attending Physician: Henry Dowd MD History of Present Illness This is a 65-year-old athletic gentleman who used to run regularly and run marathons although due to back difficulty he cannot do that anymore, he does however walk regularly and swims regularly. He has noticed no change in his exercise ability however has developed occasional lightheadedness and dizziness occurring over the last week or perhaps a little bit longer. He does monitor his heart rate with a Fitbit, he did show me the trend and although he normally runs a slow heart rate averaging around 50 bpm about a week and a half ago the average heart rate dropped to about 40 bpm and until this morning had remained at about that level. This coincides roughly with his dizziness. He was being evaluated for the dizziness when an electrocardiogram was somewhat abnormal and he was bradycardic therefore he was sent to the emergency room on December 23, 2020. Of note he has continued to exercise recently, including swimming 2 days ago with no difficulty. In fact he tells me he feels better with exercise then at rest when he is feeling this way. The symptoms are predominantly orthostatic and that he has to be careful when he stands up, sitting down at rest he has not experienced the symptoms. He has had no syncope. He does not have any other cardiovascular symptoms. He has no exercise-induced chest discomfort, no exercise-induced lightheadedness or fatigue and no significant shortness of breath. He does have sleep apnea and wears CPAP, he has been doing that for several years. He does take some vitamin supplements and tamsulosin however these have not changed recently. His diet has not changed nor has his weight. Evaluation here includes an electrocardiogram on arrival December 24, 2019 at about 11 AM where he had sinus bradycardia at 39 bpm with early repolarization. A repeat electrocardiogram the same day at 1250 is essentially the same at the same rate. Another electrocardiogram at 1311 on December 24, 2019 shows sinus bradycardia at 37 bpm with early repolarization. Telemetry shows sinus bradycardia with a gradually increasing heart rate since his presentation yesterday at noon, his heart rate has increased from an average of about 40 on telemetry to an average of about 50 with no significant nighttime drop. I reviewed his Fitbit average over the last month and this increase in heart rate occurring since yesterday is reflected in his fit bit trend as well. He does feel better this morning although he has not been up and active. An echocardiogram done this morning shows normal left ventricular size with normal systolic function and ejection fraction of 60 to 65%. He has mild concentric left ventricular hypertrophy and mild to moderate mitral regurgitation. Allergies Allergy/AdvReac Type Severity Reaction Status Date / Time Sulfa (Sulfonamide Allergy Unknown Verified 12/23/20 14:09 Antibiotics) Home Medications Medication Instructions Recorded Confirmed Type [id number]-[id number]-pnz-gki-rd8-dbr-astx 1 cap PO QAM 12/23/20 12/23/20 History [Krill Oil ([place] 3 and 6)] tamsulosin [Flomax] 0.4 mg PO QAM 12/23/20 12/23/20 History ykrdfpz-vmkr-eybvf-oreg-capryl 1 cap PO QAM 12/23/20 12/23/20 History [Candicidal] Patient History Medical History Acquired left foot drop BPH (benign prostatic hyperplasia) Dyslipidemia Surgical History H/O Spinal surgery Family History Other Heart disease Stroke Social History Smoking Status: Never smoker Second Hand Exposure: No; Do You Dip or Chew Tobacco: No; Tobacco Cessation Education Requested by Patient: No Hx Alcohol Use: Yes Alcohol type: wine Alcohol Intake Frequency: 2-4 x/Month Hx Substance Use: No Preferred Language: French Communication Ability: Effective 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 Physical Exam Physical Exam: Constitutional: Alert, cooperative and in no distress. HEENT: Unremarkable Neck: No jugular venous distention, carotid pulses are normal and equal bilaterally without bruits. Pulmonary: Clear to auscultation bilaterally. Cardiac: Regular slow rhythm with a soft holosystolic murmur at the apex, no gallop or rub. Abdomen: Soft, nontender with normal bowel sounds. Extremities: No edema. Distal pulses intact. Neurologic: No focal findings. Gait is steady. Skin: No rash, ecchymoses or petechiae. Results & Data ([facility]) Vital Signs (Past 12 Hours) Vital Signs Temp Pulse Pulse Resp BP Pulse Ox 12/24/20 08:00 47 L 12/24/20 07:33 36.5 C 61 18 151/80 H 97 12/24/20 03:57 37.1 C 47 L 18 126/73 97 12/24/20 00:06 36.9 C 47 L 18 131/67 98 Laboratory Results Cardiac Enzymes 12/23/20 12/23/20 12/24/20 Range/Units 12:47 18:33 00:26 AST 30 (15-37) U/L Troponin I < 0.015 < 0.015 < 0.015 (0-0.045) ng/ml Coagulation 12/23/20 Range/Units 12:47 PT 10.3 (9.0-12.0) Seconds APTT 25.1 (21.0-31.0) Seconds Lipids 12/24/20 Range/Units 06:44 Triglycerides 57 (0-150) mg/dl Cholesterol 169 (0-200) mg/dl HDL Cholesterol 65 mg/dl Cholesterol/HDL Ratio 3 CBC 12/23/20 12/24/20 Range/Units 12:47 06:44 WBC 5.12 7.97 (4.8-10.8) K/uL RBC 4.32 L 4.21 L (4.7-6.1) M/uL Hgb 13.8 L 13.5 L (14.0-18.0) g/dL Hct 41.3 L 40.2 L (42-52) % Plt Count 320 326 (130-400) K/uL Neut # (Auto) 2.82 (1.4-6.5) K/uL Lymph # (Auto) 1.90 (1.2-3.4) K/uL [place] # (Auto) 0.34 (0.11-0.59) K/uL Eos # (Auto) 0.04 (0-0.5) K/uL Baso # (Auto) 0.02 (0-0.2) K/uL Comprehensive Metabolic Panel 12/23/20 12/24/20 Range/Units 12:47 06:44 Sodium 134 L 139 (136-145) mmol/L Potassium 4.3 4.3 (3.5-5.1) mmol/L Chloride 102 106 (98-107) mmol/L Carbon Dioxide 29 30 (21-32) mmol/L BUN 15 16 (7-18) mg/dl Creatinine 0.86 0.95 (0.6-1.4) mg/dl Glucose 90 86 (70-99) mg/dl Calcium 8.5 8.7 (8.5-10.1) mg/dl Direct Bilirubin 0.1 (0-0.2) mg/dl AST 30 (15-37) U/L ALT 27 (12-78) U/L Alkaline Phosphatase 83 (45-117) U/L Total Protein 7.2 (6.4-8.2) gm/dl Albumin 3.9 (3.4-5.0) gm/dl Intake and Output 12/23/20 12/24/20 12/24/20 22:59 06:59 14:59 Intake Total 400 / 1100 200 / 1100 Output Total Balance 399 / 1099 200 / 1099 Intake: Oral 400 / 600 200 / 600 Output: # Bowel Movements Other: Other Intake Source NPO # Unmeasured Voids 2 1 Weight 78.6 kg 75.3 kg Weight Measurement Method Built in Bedscale Standing Scale PG Care Time/CCT Total # of Minutes Spent Total Time Spent with Patient: Total time spent is greater than 50% in coordination of care (as documented) at patient's floor/unit and/or counseling patient: Coding Level of Care Code 32458 Office/OBS Consult Lvl 4 Diagnoses Bradycardia R00.1 Sinus node dysfunction I49.5 Abnormal ECG R94.31 Elevated systolic blood pressure reading without diagnosis of hypertension R03.0
--- NOTE | 2020-12-24 12:01 | Cardiology Progress Note ---
Date of Service December 24, 2020 Assessment & Plan (1) Sinus node dysfunction: Electrophysiology input appreciated. Patient considering pacemaker implantation at this time. We will proceed with exercise stress echocardiography for assessment of chronotropic competence this a.m. (2) Near syncope: Asymptomatic sinus bradycardia with heart rate as low as 35 bpm recorded overnight. Patient symptoms likely related to symptomatic bradycardia/sinus nod e dysfunction. (3) Elevated systolic blood pressure reading without diagnosis of hypertension: Blood pressure labile during hospitalization. I suspect his blood pressure control may improve with pacemaker implantation and correcting of underlying bradycardia. I would not add antihypertensive therapy at this time. Echocardiogram with evidence of mild left ventricular hypertrophy, however, diastolic function is normal. (4) Abnormal ECG: ECG with anterior ST elevations which are similar to prior ECGs dating back to 2005. Troponin undetectable. Echocardiogram without regional wall motion abnormality. Admission and Anticipated Discharge Date Admission Date: December 23, 2020 Subjective Patient seen and examined at the bedside. Resting comfortably. No recurrent lightheadedness or dizziness. Blood pressure remains borderline hypertensive. Denies syncope or near syncope. No chest pain or shortness of breath. Telemetry revealed demonstrating sinus bradycardia with a minimum heart rate of 35 bpm overnight. Review of Systems Review of Systems: All systems reviewed & are unremarkable except as noted in Subjective Physical Exam Constitutional: well developed and well nourished; no acute distress Respiratory: normal respiratory effort; no respiratory distress, no labored breathing and no retractions Cardiovascular: Rate/Rhythm: regular rate, regular rhythm and + bradycardic Heart Sounds: normal S1 and normal S2; no gallop, no murmur and no cardiac rub Vessels: no JVD and no carotid bruit Extremities: no edema Gastrointestinal (Abdomen): Inspection/Auscultation: abdomen normal to inspection and normal bowel sounds; abdomen not distended Percussion/Palpation: abdomen soft; abdomen nontender, no guarding and abdomen not rigid Neurologic: CN's II-XI intact bilaterally and moves all extremities; no focal motor deficits Motor/Sensory: no tremor Psychiatric: A+Ox3, euthymic affect Results & Data ([facility]) Vital Signs (Past 12 Hours) Vital Signs Temp Pulse Pulse Resp BP Pulse Ox 12/24/20 11:22 36.5 C 50 L 16 158/78 H 99 12/24/20 08:00 47 L 12/24/20 07:33 36.5 C 61 18 151/80 H 97 12/24/20 03:57 37.1 C 47 L 18 126/73 97 12/24/20 00:06 36.9 C 47 L 18 131/67 98
--- NOTE | 2020-12-24 13:06 | Electrocardiogram Report ---
Test Reason : Blood Pressure : / mmHG Vent. Rate : 037 BPM Atrial Rate : 037 BPM P-R Int : 176 ms QRS Dur : 110 ms QT Int : 504 ms P-R-T Axes : 041 027 031 degrees QTc Int : 395 ms Poor data quality, interpretation may be adversely affected Marked sinus bradycardia Left ventricular hypertrophy with QRS widening with repolarization abnormality Abnormal ECG When compared with ECG of 23-DEC-2020 12:40, No significant change was found Confirmed by Humble Tang ([id number]) on 12/24/2020 1:06:09 PM Referred By: Eddie Khanna Confirmed By:Humble Tang
--- NOTE | 2020-12-24 15:52 | Hospitalist Progress Note ---
Date of Service December 24, 2020 Assessment & Plan (1) Near syncope: (2) Bradycardia: This is a 65yo M with a PMH of dyslipidemia, BPH, history of left foot drop and other medical problems listed below who presents with persistent lightheadedness over the past few days and was found to have abnormal EKG and worsening bradycardia. Lightheadedness in setting of bradycardia, abnormal EKG HR in high 30s-40s today History of bradycardia in setting of routine cardiovascular exercise- average daily resting HR of 48 bpm per Fitbit reading Lyme serology pending, TSH wnl. Potassium and calcium wnl Discussed with cardiology - concerned regarding underlying sinus node dysfunction No need for temporary pacer at this time Monitor on telemetry, 2D echo pending, NPO after MN in case of stress testing tomorrow Appreciate EP cardiology and cardiology input and recommendation Status post stress echo with normal response to heart rate but hypertensive response to blood pressure Further recommendation from the oracle obiee developer (3) Abnormal ECG: EKG with ST changes in anterolateral leads that look similar to EKGs dating back to 2005 - no acute changes No chest pain or SOB Trend troponin (4) Elevated systolic blood pressure reading without diagnosis of hypertension: Downtrending since PCU - continue to monitor Plan to allow for some physiological compensation given marked bradycardia Hypertensive response to stress echocardiogram (5) Dyslipidemia: History of diet controlled dyslipidemia. Fasting lipid panel ordered for AM (6) BPH (benign prostatic hyperplasia): Continue Flomax DVT Ppx: SQ heparin Code status: FULL PCP: Jey Dispo: Observation PCU Admission and Anticipated Discharge Date Admission Date: December 23, 2020 Subjective 12/24/2020 The patient was seen and examined in telemetry unit He has had one episode of dizziness while his trying to bend down to lease picker something in his room the hospital He did not have any palpitation, shortness of breath, sweating or numbness and tingling involving any of the extremities His monitoring did not show any significant pauses and/or bradycardia Review of Systems Review of Systems: At least ten systems reviewed and negative except as noted in the HPI. Physical Exam Physical Exam: Sitting at the edge of the bed without any acute distress Constitutional: + ill appearing and average body habitus Eyes: PERRL, conjunctivae normal, anicteric sclerae ENMT: external ear and nose normal, oropharynx normal Neck: trachea midline, no thyromegaly Respiratory: no respiratory distress Auscultation: lungs clear to auscultation bilaterally Cardiovascular: Rate/Rhythm: regular rate, regular rhythm and + bradycardic Heart Sounds: no murmur Extremities: no edema Gastrointestinal (Abdomen): Inspection/Auscultation: normal bowel sounds; abdomen not distended Percussion/Palpation: abdomen soft; abdomen nontender Musculoskeletal: No acute arthritis in any joint Neurologic: Alert, awake and oriented x3. No focal sensory no motor deficit appreciated Lymphatic: no cervical or axillary lymphadenopathy Results & Data Results & Data ([facility]) Vital Signs (Past 12 Hours) Vital Signs Temp Pulse Pulse Resp BP Pulse Ox 12/24/20 14:49 60 12/24/20 11:22 36.5 C 50 L 16 158/78 H 99 12/24/20 08:00 47 L 12/24/20 07:33 36.5 C 61 18 151/80 H 97 12/24/20 03:57 37.1 C 47 L 18 126/73 97 Laboratory Results Short CBC 12/24/20 Range/Units 06:44 WBC 7.97 (4.8-10.8) K/uL Hgb 13.5 L (14.0-18.0) g/dL Hct 40.2 L (42-52) % Plt Count 326 (130-400) K/uL BMP 12/24/20 06:44 Sodium 139 Potassium 4.3 Chloride 106 Carbon Dioxide 30 BUN 16 Creatinine 0.95 Glucose 86 Calcium 8.7 Cardiac Enzymes 12/23/20 12/24/20 Range/Units 18:33 00:26 Troponin I < 0.015 < 0.015 (0-0.045) ng/ml Medications Administered Current Inpatient Medications Acetaminophen (Acetaminophen 325 Mg Tab) 650 mg PO Q4H PRN PRN Reason: Pain or Fever Stop: 01/22/21 16:42 Heparin Sodium (Porcine) (Heparin Sod 5,000 Unit/0.5 Ml Vial) 5,000 units SQ Q8 WAQAR Stop: 01/22/21 21:59 Last Admin: 12/24/20 13:03 Dose: 5,000 units Documented by: Nitroglycerin (Nitroglycerin Sl 0.4 Mg/Tab Tab) 0.4 mg SL UD PRN PRN Reason: Chest Pain Stop: 01/22/21 16:42 Ondansetron HCl (Ondansetron Inj 2 Mg/Ml 2 Ml Vial) 4 mg IV Q6H PRN PRN Reason: Nausea Stop: 01/22/21 16:42 Polyethylene Glycol (Polyethylene (Miralax) 17 Gm Pack) 17 gm PO DAILY PRN PRN Reason: Constipation Stop: 01/22/21 16:42 Tamsulosin HCl (Tamsulosin Hcl 0.4 Mg Cap) 0.4 mg PO [facility] Stop: 01/23/21 08:59 Last Admin: 12/24/20 08:25 Dose: 0.4 mg Documented by:
[2020-12-25] MEDS: HEPARIN SOD 5,000 UNIT/0.5 ML VIAL SQ SCH (05:54)
[2020-12-25] MEDS ORDERED: LACTATED RINGER'S 1,000 ML IV SCH (06:00)
[2020-12-25 06:29] LABS: Basophils # (auto) 0.02 K/uL (0-0.2); Basophils % (auto) 0.4 %; Eosinophils # (auto) 0.07 K/uL (0-0.5); Eosinophils % (auto) 1.3 %; Hematocrit (blood only) 38.3 % (42-52); Hemoglobin 13.1 g/dL (14.0-18.0); Lymphocytes # (auto) 1.74 K/uL (1.2-3.4); Lymphocytes % (auto) 32.2 %; Mean Corpuscular Hemoglobin 31.7 pg (25-34); Mean Corpuscular Hgb Conc 34.2 g/dL (32-36); Mean Corpuscular Volume 92.7 fL (80-100); Mean Platelet Volume 9.1 fL (7.4-10.4); Monocytes % (auto) 11.1 %; Neutrophils # (auto) 2.97 K/uL (1.4-6.5); Platelet Count 263 K/uL (130-400); RDW Coefficient of Variation 13.6 % (11.5-14.5); RDW Standard Deviation 46.2 fL (36.4-46.3); Red Blood Count 4.13 M/uL (4.7-6.1)
[2020-12-25 07:07] LABS: Calcium 8.7 mg/dl (8.5-10.1); Creatinine Clr Calc Pharmacy 78.7 ml/min; Est GFR (African American) 96.8 ml/min; Est GFR (Non-African American) 83.6 ml/min; Magnesium 2.3 mg/dl (1.8-2.4); Phosphorus 3.3 mg/dl (2.5-4.9); Potassium 4.2 mmol/L (3.5-5.1)
[2020-12-25] MEDS ORDERED: VANCOMYCIN HCL 1000MG/20ML VIAL ONE (07:09)
[2020-12-25] MEDS ORDERED: LIDOCAINE 1% LOCAL 20 ML VIAL ONE (07:09)
[2020-12-25] MEDS ORDERED: WATER, STERILE FOR INJ 10 ML VIAL ONE (07:09)
[2020-12-25] MEDS ORDERED: BACITRACIN OINT 0.9 GM PKT ONE (07:09)
--- NOTE | 2020-12-25 07:30 | History & Physical Bridge Note ---
Date of Service December 25, 2020 History & Physical Bridge Note I have examined the patient, reviewed the History & Physical and in the interval since the performance of the History & Physical I have noted the following changes of clinical significance: no changes note. I reviewed the indications, procedure, risks and alternatives with the patient, answered all questions. Consent obtained. Patient understands and agrees to the procedure. I also reviewed the risks and use of sedation, patient understands and consent obtained yesterday.
--- NOTE | 2020-12-25 07:31 | Pre Anesthesia Assessment ---
Date of Service December 25, 2020 Pre Sedation Assessment Vital Signs Temp Pulse Pulse Resp BP Pulse Ox 12/25/20 07:23 48 L 16 158/98 H 98 12/25/20 07:09 47 L 12/25/20 04:17 36.3 C L 48 L 18 134/75 96 12/25/20 00:10 36.9 C 43 L 18 162/86 H 98 12/24/20 20:28 36.5 C 52 L 16 154/78 H 99 12/24/20 16:04 37.0 C 58 L 18 113/69 97 12/24/20 14:49 60 12/24/20 11:22 36.5 C 50 L 16 158/78 H 99 12/24/20 08:00 47 L 12/24/20 07:33 36.5 C 61 18 151/80 H 97 Cardiovascular RRR, no murmur, no edema + bradycardic Respiratory normal respiratory effort, lungs clear to auscultation Pre-Sedation Airway Assessment Smoking Status: Never smoker Hx Sleep Apnea: No Short, Thick Neck: No Thyromental Distance: > or= 3.5 Finger Breadths Oral Cavity: + WNL Mallampati Class: III ASA: ASA3 NPO Status Date of Last Intake of Fluids: 12/24/20 Time of Last Intake of Fluids: 20:00 Date of Last Intake of Solid Food: 12/24/20 Time of Last Intake of Solid Foods: 20:00 Procedure Planning Contraindications for Sedation: none Current Medications Reviewed: Yes Notes The planned sedation has been discussed with the patient. Informed Consent was obtained. I have identified the patient, determined the appropriateness of sedation and have assessed the patient immediately prior to the procedure. All medicine(s) and interventions are by my order.
[2020-12-25] MEDS ORDERED: MIDAZOLAM HCL 5 MG/ML 1 ML VIAL ONE (07:36)
[2020-12-25] MEDS ORDERED: fentaNYL citrate 100 MCG/2 ML VIAL ONE (07:36)
--- NOTE | 2020-12-25 08:54 | Electrophysiology Report ---
Date of Service December 25, 2020 Electrophysiology Procedure Electrophysiology Procedure Report Preoperative diagnosis: Sinus node dysfunction Postoperative diagnosis: Same Procedure: Dual-chamber pacemaker implantation Surgeon: Ryan Pina MD Estimated blood loss: 20 cc Complications: None Disposition: Radiological Engineer recovery Procedure details: After obtaining informed consent for the procedure, the patient was brought to the laboratory and prepped and draped in the standard shan rile manner. Dye was injected the left arm IV site to opacify the left subclavian vein. The subclavian vein was identified and found to be free of obstruction. The left prepectoral region was anesthetized with 1% lidocaine local anesthetic and left axillary venipuncture was performed by percutaneous technique and a guidewire placed through the left subclavian vein into the superior vena cava. The area was further infiltrated with 1% lidocaine local anesthetic and a 5 cm incision was made parallel to the left clavicle and 2 cm below it and carried down to the anterior pectoralis fascia. A pacemaker pocket was formed by blunt dissection anterior to the pectoralis fascia and a vancomycin-soaked sponge was placed in the pocket. An 8 Bulgarian Medtronic lead introducer was placed over the guidewire into the left subclavian vein, the dilator and guidewire were removed and a bipolar active fixation steroid tipped ventricular lead was advanced through the introducer into the superior vena cava. A guidewire was placed through the introducer and the introducer was stripped from the lead and guidewire. Another 8 Bulgarian Medtronic lead introducer was placed over the guidewire into the left subclavian vein, the dilator and guidewire were removed and a bipolar active fixation steroid tipped atrial lead was advanced through the introducer into the superior vena cava. A guidewire was placed back through the introducer and the introducer was stripped from the lead and guidewire. Using a curved stylette the ventricular lead was advanced through the right ventricular outflow tract into the pulmonary artery and then using a straight stylette was positioned in the right ventricular apex. The screw was extended fixing the lead in position. Pacing and sensing thresholds were evaluated in bipolar configuration and are recorded on the implant data sheet. Using a curved stylette the atrial lead was positioned in the region of the atrial appendage and the screw extended fixing the lead in position. Pacing and sensing thresholds were evaluated in bipolar configuration and are recorded on the implant data sheet. Once the leads were in position they were attached to the anterior pectoralis fascia using 2 sutures of 2-0 silk around each lead collar. The bacitracin- soaked sponge was removed from the pocket, hemostasis was obtained, the pacemaker was attached to the leads and placed in the pocket with the leads coiled beneath it. The incision was closed with a running double subcutaneous closure of 3-0 Vicryl absorbable suture, followed by running subcuticular skin closure of 4-0 Vicryl absorbable suture. Bacitracin ointment was placed on the incision and a dressing applied. [facility] [place] codes Indication for Procedure (1) Sinus node dysfunction: Pacing Procedure 1: Pacin Insert/Replace Pacer A & V Miscellaneous Procedures Procedure 1: EP Miscellaneous: 98028 Contrast injection for venography Procedure 2: EP Miscellaneous: 58803-16 Vengraphy, extremity PG Moderate Sedation Codes Moderate Sedation Codes Procedure 1: Sedation/Anesthesia: 27017 Mod Sedation by the same physician;Init15 Min Child Age 5 & Up Procedure 2: Sedation/Anesthesia: 32200 Mod Sedation by the same physician; Ea [id number] Minutes
[2020-12-25] MEDS: TAMSULOSIN HCL 0.4 MG CAP PO SCH (09:50)
[2020-12-25 11:32] VITALS: TEMP 97.5
--- NOTE | 2020-12-25 11:54 | Hospitalist Progress Note ---
Date of Service December 25, 2020 Assessment & Plan (1) Near syncope: (2) Bradycardia: This is a 65yo M with a PMH of dyslipidemia, BPH, history of left foot drop and other medical problems listed below who presents with persistent lightheadedness over the past few days and was found to have abnormal EKG and worsening bradycardia. Lightheadedness in setting of bradycardia, abnormal EKG HR in high 30s-40s today History of bradycardia in setting of routine cardiovascular exercise- average daily resting HR of 48 bpm per Fitbit reading Lyme serology pending, TSH wnl. Potassium and calcium wnl Discussed with cardiology - concerned regarding underlying sinus node dysfunction No need for temporary pacer at this time Monitor on telemetry, 2D echo pending, NPO after MN in case of stress testing tomorrow Appreciate EP cardiology and cardiology input and recommendation Status post stress echo with normal response to heart rate but hypertensive response to blood pressure Further recommendation from the patient ombudsperson Status post stress echo-still having low baseline heart rate Status post PPM placement on 12/25/2020:: p Pacer with A/V Leads (Dual).Surgeon: Ryan Pina Denies any significant symptoms Like to be discharged this afternoon (3) Abnormal ECG: EKG with ST changes in anterolateral leads that look similar to EKGs dating back to 2006 - no acute changes No chest pain or SOB Trend troponin-negative for ACS (4) Elevated systolic blood pressure reading without diagnosis of hypertension: Downtrending since PCU - continue to monitor Plan to allow for some physiological compensation given marked bradycardia Hypertensive response to stress echocardiogram Blood pressure is controlled (5) Dyslipidemia: History of diet controlled dyslipidemia. Fasting lipid panel ordered for AM (6) BPH (benign prostatic hyperplasia): Continue Flomax DVT Ppx: SQ heparin Code status: FULL PCP: Jey Dispo: Observation PCU Discharge this afternoon Admission and Anticipated Discharge Date Admission Date: December 23, 2020 Subjective 12/24/2020 The patient was seen and examined in telemetry unit He has had one episode of dizziness while his trying to bend down to bulk picker something in his room the hospital He did not have any palpitation, shortness of breath, sweating or numbness and tingling involving any of the extremities His monitoring did not show any significant pauses and/or bradycardia 12/25/2020 The patient was seen and examined in telemetry unit He is status post PPM placement early this morning Has been doing fine and denies any symptoms Likely to be discharged this afternoon Review of Systems Review of Systems: At least ten systems reviewed and negative except as noted in the HPI. Cardiovascular: no chest pain, no lightheadedness and no edema Physical Exam Physical Exam: Sitting at the edge of the bed without any acute distress Constitutional: average body habitus; not ill appearing Eyes: PERRL, conjunctivae normal, anicteric sclerae ENMT: external ear and nose normal, oropharynx normal Neck: trachea midline, no thyromegaly Respiratory: no respiratory distress Auscultation: lungs clear to auscultation bilaterally Cardiovascular: Rate/Rhythm: regular rate, regular rhythm and + bradycardic Heart Sounds: no murmur Extremities: no edema Gastrointestinal (Abdomen): Inspection/Auscultation: normal bowel sounds; abdomen not distended Percussion/Palpation: abdomen soft; abdomen nontender Musculoskeletal: No acute arthritis in any joint Neurologic: Alert, awake and oriented x3. No focal sensory and motor deficit appreciated Lymphatic: no cervical or axillary lymphadenopathy Results & Data Results & Data ([facility]) Vital Signs (Past 12 Hours) Vital Signs Temp Pulse Pulse Resp BP BP Pulse Ox 12/25/20 11:30 36.4 C L 50 L 11 L 129/79 99 12/25/20 11:00 50 L 18 129/92 98 12/25/20 10:30 50 L 18 134/91 97 12/25/20 10:11 50 L 18 141/91 H 99 12/25/20 09:41 51 L 18 129/88 99 12/25/20 09:38 52 L 12/25/20 09:26 36.5 C 52 L 18 130/76 99 12/25/20 09:08 54 L 16 124/60 98 12/25/20 08:53 53 L 16 126/84 98 12/25/20 07:23 48 L 16 158/98 H 98 12/25/20 07:09 47 L 12/25/20 04:17 36.3 C L 48 L 18 134/75 96 12/25/20 00:10 36.9 C 43 L 18 162/86 H 98 Laboratory Results Short CBC 12/25/20 Range/Units 06:20 WBC 5.40 (4.8-10.8) K/uL Hgb 13.1 L (14.0-18.0) g/dL Hct 38.3 L (42-52) % Plt Count 263 (130-400) K/uL BMP 12/25/20 06:20 Sodium 138 Potassium 4.2 Chloride 106 Carbon Dioxide 30 BUN 14 Creatinine 0.94 Glucose 88 Calcium 8.7 Medications Administered Current Inpatient Medications Acetaminophen (Acetaminophen 325 Mg Tab) 650 mg PO Q4H PRN PRN Reason: Pain or Fever Stop: 01/22/21 16:42 Cefazolin Sodium (Cefazolin 250 Mg/Ml 1 Gm Vial) 1,000 mg IV PREOP WAQAR; Protocol Stop: 12/25/20 16:00 Last Admin: 12/25/20 08:10 Dose: 1,000 mg Documented by: Heparin Sodium (Porcine) (Heparin Sod 5,000 Unit/0.5 Ml Vial) 5,000 units SQ Q8 WAQAR Stop: 01/22/21 21:59 Last Admin: 12/25/20 05:54 Dose: Not Given Documented by: Lactated Ringer's (Lr) 1,000 mls @ 15 mls/hr IV .Q24H WAQAR Stop: 12/28/20 00:39 Last Admin: 12/25/20 08:10 Dose: 15 mls/hr Documented by: Nitroglycerin (Nitroglycerin Sl 0.4 Mg/Tab Tab) 0.4 mg SL UD PRN PRN Reason: Chest Pain Stop: 01/22/21 16:42 Ondansetron HCl (Ondansetron Inj 2 Mg/Ml 2 Ml Vial) 4 mg IV Q6H PRN PRN Reason: Nausea Stop: 01/22/21 16:42 Polyethylene Glycol (Polyethylene (Miralax) 17 Gm Pack) 17 gm PO DAILY PRN PRN Reason: Constipation Stop: 01/22/21 16:42 Tamsulosin HCl (Tamsulosin Hcl 0.4 Mg Cap) 0.4 mg PO QAM [facility] Stop: 01/23/21 08:59 Last Admin: 12/25/20 09:50 Dose: 0.4 mg Documented by:
[2020-12-25 12:24] VITALS: O2SAT 100
--- NOTE | 2020-12-25 12:39 | Cardiology Progress Note ---
Date of Service December 25, 2020 Assessment & Plan (1) Sinus node dysfunction: Electrophysiology input appreciated. Dual-chamber pacemaker implanted today without complication. Outpatient wound check, pacemaker interrogation in 1 week. Post pacemaker activity restrictions reviewed. (2) Near syncope: Secondary to sinus node dysfunction/symptomatic bradycardia. Pacemaker implanted without complication. (3) Elevated systolic blood pressure reading without diagnosis of hypertension: Blood pressure improved post pacemaker insertion. No medication changes at this time. Continue to monitor. Sodium restriction advised. (4) Abnormal ECG: ECG with anterior ST elevations which are similar to prior ECGs dating back to 2005. Troponin undetectable. Echocardiogram without regional wall motion abnormality. Exercise stress echo negative for inducible ischemia. Admission and Anticipated Discharge Date Admission Date: December 23, 2020 Subjective Patient seen and examined the bedside. Feeling well post pacemaker intervention. Denies chest pain or shortness of breath. Notes mild soreness near surgical site. Dressing is clean and dry. Telemetry reveals sinus bradycardia overnight. No recurrent lightheadedness or dizziness. is present at bedside. She offers no additional concerns/complaints. Review of Systems Review of Systems: All systems reviewed & are unremarkable except as noted in Subjective Physical Exam Constitutional: well developed and well nourished; no acute distress Respiratory: normal respiratory effort; no respiratory distress, no labored breathing and no retractions Cardiovascular: Rate/Rhythm: regular rate, regular rhythm and + bradycardic Heart Sounds: normal S1 and normal S2; no gallop, no murmur and no cardiac rub Vessels: no JVD and no carotid bruit Extremities: no edema Chest (Breasts): Additional Comments: Left-sided pacemaker surgical site clean, dry, intact. Gastrointestinal (Abdomen): Inspection/Auscultation: abdomen normal to inspection and normal bowel sounds; abdomen not distended Percussion/Palpation: abdomen soft; abdomen nontender, no guarding and abdomen not rigid Neurologic: CN's II-XI intact bilaterally and moves all extremities; no focal motor deficits Motor/Sensory: no tremor Psychiatric: A+Ox3, euthymic affect Results & Data ([facility]) Vital Signs (Past 12 Hours) Vital Signs Temp Pulse Pulse Resp BP BP Pulse Ox 12/25/20 12:00 50 L 18 133/77 100 12/25/20 11:30 36.4 C L 50 L 11 L 129/79 99 12/25/20 11:00 50 L 18 129/92 98 12/25/20 10:30 50 L 18 134/91 97 12/25/20 10:11 50 L 18 141/91 H 99 12/25/20 09:41 51 L 18 129/88 99 12/25/20 09:38 52 L 12/25/20 09:26 36.5 C 52 L 18 130/76 99 12/25/20 09:08 54 L 16 124/60 98 12/25/20 08:53 53 L 16 126/84 98 12/25/20 07:23 48 L 16 158/98 H 98 12/25/20 07:09 47 L 12/25/20 04:17 36.3 C L 48 L 18 134/75 96
--- NOTE | 2020-12-25 13:11 | XRay Report ---
XR chest 2V PA/lateral CLINICAL HISTORY: Chest x-ray status post pacemaker placement COMPARISON STUDY: 12/23/2020 FINDINGS: The heart is normal in size. There has been interval placement of a left subclavian dual-ch cuco central venous pacemaker. There is no pneumothorax. Electrode position appears unremarkable. Th ere is no failure. There is no focal pulmonary consolidation. Note is made of gaseous prominence of t he visualized bowel with colonic interposition[ IMPRESSION: No evidence of pneumothorax status post placement of a left subclavian dual-chamber centr al venous pacemaker. ACT 112: Negative or not required by law. Electronically signed by: Diego Ozuna M.D. 12/25/2020 1:10 PM
--- NOTE | 2020-12-25 13:46 | Post Anesthesia Assessment ---
Date of Service December 25, 2020 Post Sedation Assessment Vital Signs Temp Pulse Pulse Resp BP BP Pulse Ox 12/25/20 12:00 50 L 18 133/77 100 12/25/20 11:30 36.4 C L 50 L 11 L 129/79 99 12/25/20 11:00 50 L 18 129/92 98 12/25/20 10:30 50 L 18 134/91 97 12/25/20 10:11 50 L 18 141/91 H 99 12/25/20 09:41 51 L 18 129/88 99 12/25/20 09:38 52 L 12/25/20 09:26 36.5 C 52 L 18 130/76 99 12/25/20 09:08 54 L 16 124/60 98 12/25/20 08:53 53 L 16 126/84 98 12/25/20 07:23 48 L 16 158/98 H 98 12/25/20 07:09 47 L 12/25/20 04:17 36.3 C L 48 L 18 134/75 96 12/25/20 00:10 36.9 C 43 L 18 162/86 H 98 12/24/20 20:28 36.5 C 52 L 16 154/78 H 99 12/24/20 16:04 37.0 C 58 L 18 113/69 97 12/24/20 14:49 60 Recovery Score Activity: Moves 4 extremities Respiration: Deep Breath/Cough Circulation: +/-20% PreAnes Value Consciousness: Fully Awake Oxygen Saturation: > 92% On Room Air Post Anesthesia Score: 10 Discharge Sedation Level of Care: Fast Track Phase II Post Sedation Plan On clinical assessment, the patient appears to have tolerated the sedation without complications. Patient is recovering as anticipated. Patient will continue to be monitored by nursing and may be discharged when sedation discharge criteria are met per below protocol. Upon Completions of procedure up to 15 minutes continue every 5 minute vital signs and the P.A.R. score; then discharge to a Phase I or Fast Track to Phase II per the following guidelines: * Discharge Patient to appropriate Phase II area if PAR is 8 or greater or return to pre- procedure baseline. The post - procedure orders will be as directed. * If PAR score is less than 8 or not return to pre-procedure baseline then patient will follow Phase I monitoring till PAR is reached for Phase II. The Phase I may be done in procedure room or may call to secure a Phase I area. * If naloxone or flumazenil are used for reversal, hold in Phase I for continued monitoring from when last reversal dose was given for a minimum of 60 minutes or longer pending the nurse and/or physician discretion of patient condition before discharge to Phase II. Please call the Sedation Physician to re-evaluate and complete post-note for discharge to Phase II area. Do NOT discharge from procedure sedation or Phase 1 until post- sedation evaluation note is complete by procedure /sedation MD Sedation Discharge Instructions to be given to the patient at discharge to home.
--- NOTE | 2020-12-25 13:48 | Cardiology Progress Note ---
Date of Service December 25, 2020 Assessment & Plan (1) Status post placement of cardiac pacemaker: He seems to be doing well postop, his chest x-ray shows good lead position, pacemaker evaluation shows excellent pacing and sensing characteristics. He should be stable for discharge today. He will follow-up with [facility]. Admission and Anticipated Discharge Date Admission Date: December 23, 2020 Subjective Feels well, no significant incitional pain Physical Exam Physical Exam: Site is clean and dry, dressing changed Results & Data ([facility]) Vital Signs (Past 12 Hours) Vital Signs Temp Pulse Pulse Resp BP BP Pulse Ox 12/25/20 12:00 50 L 18 133/77 100 12/25/20 11:30 36.4 C L 50 L 11 L 129/79 99 12/25/20 11:00 50 L 18 129/92 98 12/25/20 10:30 50 L 18 134/91 97 12/25/20 10:11 50 L 18 141/91 H 99 12/25/20 09:41 51 L 18 129/88 99 12/25/20 09:38 52 L 12/25/20 09:26 36.5 C 52 L 18 130/76 99 12/25/20 09:08 54 L 16 124/60 98 12/25/20 08:53 53 L 16 126/84 98 12/25/20 07:23 48 L 16 158/98 H 98 12/25/20 07:09 47 L 12/25/20 04:17 36.3 C L 48 L 18 134/75 96 Diagnostic Findings Postop ECG: Atrial pacing with intact AV conduction Pacemaker evaluation: Excellent pacing and sensing characteristics Chest x-ray: Good lead position, no pneumothorax Telemetry: Normal pacer function PG Care Time/CCT Total # of Minutes Spent Total Time Spent with Patient: Total time spent is greater than 50% in coordination of care (as documented) at patient's floor/unit and/or counseling patient: Coding Level of Care Code 10895 Post Operative Follow-Up Diagnoses Status post placement of cardiac pacemaker Z95.0 CPT Codes Dual Lead Pacemaker System - [id number] ([id number])
[2020-12-25 14:39] VITALS: BP 124/60
[2020-12-25 15:10] VITALS: PULSE 52
--- NOTE | 2020-12-26 06:06 | Electrocardiogram Report ---
Test Reason : Blood Pressure : / mmHG Vent. Rate : 050 BPM Atrial Rate : 050 BPM P-R Int : 208 ms QRS Dur : 104 ms QT Int : 454 ms P-R-T Axes : 049 028 030 degrees QTc Int : 413 ms Poor data quality, interpretation may be adversely affected Atrial-paced rhythm Minimal voltage criteria for LVH, may be normal variant ST elevation, consider early repolarization, pericarditis, or injury Abnormal ECG When compared with ECG of 23-DEC-2020 13:11, Electronic atrial pacemaker has replaced Sinus rhythm Confirmed by Simba Lamb ([id number]) on 12/26/2020 6:05:51 AM Referred By: Eddie Khanna Confirmed By:Simba Lamb
--- NOTE | 2020-12-26 08:08 | Discharge Summary ---
Date of Service December 26, 2020 Admission HPI Per Admitting Provider This is a 65yo M with a PMH of dyslipidemia, BPH, history of left foot drop and other medical problems listed below who presents with persistent lightheadedness over the past few days. Was seen by PCP earlier today after having the lightheadedness every morning for the past 3 days that would resolve later on during the day. However, this morning, lightheadedness persisted and was accompanied with some generalized weakness and near syncope. EKG was performed in the office with concern for ST changes in anterolateral leads and patient was directed to ER for further evaluation. Patient denies any chest pain or palpitations. Has not experienced any lightheadedness since arrival. Denies any history of known heart disease or evaluation by cardiology. Does remember being told he had an abnormal EKG prior to back surgery years ago but did not undergo any further evaluation. Is an avid walker and swimmer with HR in 40s at rest and 50s-low 60s during the day, per [employer] reads. Does have family history of heart disease. Denies any fever, chills, headache, dizziness, chest pain, palpitations, shortness of breath, nausea, vomiting, abdominal pain, dysuria, diarrhea or constipation. Admission Exam Per Admitting Provider Physical Exam: General Appearance: WD/WN, vitals as above, NAD, sitting up in bed, pleasant, conversing easily Head: normocephalic, atraumatic Eyes: normal inspection, PERRL, conjunctivae normal, anicteric sclerae ENT: external ear and nose normal, oropharynx normal Neck: normal visual inspection, trachea midline, no thyromegaly Respiratory: normal respiratory effort, lungs clear to auscultation, no wheeze, rales, rhonchi. No accessory muscle use Cardiovascular: bradycardic rate, regular rhythm, no murmur, normal peripheral pulses, no BLE edema. Vessels: no JVD Chest: normal inspection of chest Abdomen/GI: normal bowel sounds, soft, nontender, no hepatosplenomegaly Extremities/Musculoskeletal: no cyanosis or clubbing, extremities motor strength 5/5 Neurologic: PERRL, EOMI, accommodation nl, no face palsy, no dysarthria, CN's II-XI intact bilaterally and moves all extremities Psychiatric: A+Ox3, euthymic affect Skin: no rashes, normal color, warm/dry Principal Diagnosis Symptomatic bradycardia, sinus node dysfunction status post PPM placement Discharge Exam Constitutional average body habitus; not ill appearing Eyes PERRL, conjunctivae normal, anicteric sclerae ENMT external ear and nose normal, oropharynx normal Neck trachea midline, no thyromegaly Respiratory no respiratory distress Auscultation: lungs clear to auscultation bilaterally Cardiovascular Rate/Rhythm: regular rate, regular rhythm and + bradycardic Heart Sounds: no murmur Extremities: no edema Gastrointestinal (Abdomen) Inspection/Auscultation: normal bowel sounds; abdomen not distended Percussion/Palpation: abdomen soft; abdomen nontender Lymphatic no cervical or axillary lymphadenopathy Discharge Data Allergies Allergy/AdvReac Type Severity Reaction Status Date / Time Sulfa (Sulfonamide Allergy Unknown Verified 12/23/20 14:09 Antibiotics) Consultations 12/23/20 14:37 ED Decision to Admit Stat 12/23/20 14:47 Consult Cardiology Routine 12/24/20 08:33 Consult Cardiac Electrophysiology Routine Procedures Performed Operation Date: 12/25/20 07:30 Actual Procedures p Pacer with A/V Leads (Dual) - Ryan Pina MD s Venogram, Unilateral(Left) - Ryan Pina MD Ordered Studies 12/25/20 07:30 CL Cath Imgs for PACS use only Stat Hospital Course (1) Near syncope: (2) Bradycardia: This is a 65yo M with a PMH of dyslipidemia, BPH, history of left foot drop and other medical problems listed below who presents with persistent lightheadedness over the past few days and was found to have abnormal EKG and worsening bradycardia. Lightheadedness in setting of bradycardia, abnormal EKG HR in high 30s-40s today History of bradycardia in setting of routine cardiovascular exercise- average daily resting HR of 48 bpm per [employer] reading Lyme serology pending, TSH wnl. Potassium and calcium wnl Discussed with cardiology - concerned regarding underlying sinus node dysfu nction No need for temporary pacer at this time Monitor on telemetry, 2D echo pending, NPO after MN in case of stress testing tomorrow Appreciate EP cardiology and cardiology input and recommendation Status post stress echo with normal response to heart rate but hypertensive response to blood pressure Further recommendation from the car jockey Status post stress echo-still having low baseline heart rate Status post PPM placement on 12/25/2020:: p Pacer with A/V Leads (Dual).Surgeon: Ryan Pina Denies any significant symptoms Like to be discharged this afternoon (3) Abnormal ECG: EKG with ST changes in anterolateral leads that look similar to EKGs dating back to 2005 - no acute changes No chest pain or SOB Trend troponin-negative for ACS (4) Elevated systolic blood pressure reading without diagnosis of hypertension: Downtrending since PCU - continue to monitor Plan to allow for some physiological compensation given marked bradycardia Hypertensive response to stress echocardiogram Blood pressure is controlled (5) Dyslipidemia: History of diet controlled dyslipidemia. Fasting lipid panel ordered for AM (6) BPH (benign prostatic hyperplasia): Continue Flomax DVT Ppx: SQ heparin Code status: FULL PCP: Jey Dispo: Observation PCU Discharge this afternoon Total Time Total Time Spent Total Time Spent (In Minutes): 35 minutes Total Time Includes: Examination of the Patient, Discharge Planning, Medication Reconciliation and Communication With Other Providers Discharge Plan Discharge Items Patient Disposition: Home - Self-Care Reason For Visit: lightheadedness, abnormal EKG Discharge Diagnosis: Symptomatic bradycardia, sinus node dysfunction status post PPM placement Condition on Discharge: Good Activity: Resume your previous activity Activity Comment: Take it easy for the next few days Non-emergency contact: Primary Care Provider Call non-emergency contact if: you have any medication questions and your symptoms worsen Follow-up/Referrals: Eddie Khanna, [Primary Care Provider] - 12/31/20 11:00 am (Date & Time 12/31/2020 11:00 AM Provider Moraima Ferrer MD Department Family Practice [facility] ) Diet: Heart Healthy and Low Sodium (2gm) Addtl Attending Provider Instructions: Please take precautions to avoid fall Keep taking your outpatient medications Please keep follow-up appointments with primary care doctor and car jockey ACTIVITY RECOMMENDATIONS: * Do not raise affected arm over head for 2 weeks. SPECIAL CARE INSTRUCTIONS: * If bleeding occurs, apply direct pressure to area for 5 minutes. * Call your doctor if you have severe pain, fever, drainage or bleeding at site. * Keep dressing on and dry for 48 hours then remove. * Keep any scheduled doctor's appointment. * Implant Card - hand held device with website information given. SKIN IRRITATION: * You may experience some redness and/or swelling in the area where radiation was administered. If any skin irritation occurs, please contact your family physician. FOLLOW UP VISIT: Keep any scheduled doctor appointments. Pending Studies at Discharge: No Stand-Alone Forms: My [facility], Smoking Cessation Medications and DC Order Prescriptions: Continued tamsulosin [Flomax] 0.4 mg capsule 0.4 mg PO QAM RF: 0 Krill Oil ([place] 3 and 6) 1,500-165-67.5 mg Capsule 1 cap PO QAM RF: 0 Candicidal 100 mg-150 mg- 50 mg-150 mg Capsule 1 cap PO QAM RF: 0 Discharge Orders: Discharge Order (Routine); Ordered 12/25/20 Ordered By: Henry Dowd Admission Data Admit Date/Time: 12/23/20 14:47 Attending Provider: Henry Dowd Admit Provider: Henry Dowd Primary Care Provider: Eddei Khanna Other Providers: Henry Dowd ; Pradip Christian Charles C. Other Interventions: Discharge Summary Assessment (RN) Last Done: 12/25/20 14:38
== END 2020-12-25 15:15 | disposition home or self-care (01) ==
LOC: 2S 12:23 → ED 12:23 → 2S 15:02
DX: E78.5 Hyperlipidemia, unspecified; I49.5 Sick sinus syndrome; R55 Syncope and collapse; Z79.899 Other long term (current) drug therapy; Z88.2 Allergy status to sulfonamides; N40.0 Benign prostatic hyperplasia without lower urinary tract symptoms; R03.0 Elevated blood-pressure reading, without diagnosis of hypertension